=== PATIENT | female | born 1975 | race Caucasian/White ===

== ENCOUNTER → 2023-11-22 17:54 | Outpatient (REF) | payer BC, SELFPAY | LOC: HWWDC 17:54 | PROVIDERS: ATTENDING PHYSICIAN Internal Medicine Medical Oncology; FAMILY PHYSICIAN Internal Medicine | DX: Z12.31 Encounter for screening mammogram for malignant neoplasm of breast (principal) | CPT/HCPCS: 77063; 77067 ==